=== PATIENT | male | born 1980 | race Caucasian/White ===

== ENCOUNTER 2023-06-08 08:00 | Emergency (ER) | payer OTHER ==
[~2023-06-08] VITALS: Ht 170.2 cm; Wt 81.2 kg
[2023-06-08 08:05] VITALS: BP 138/86; PULSE 82; RESP 16; TEMP 98.6; O2SAT 98
[2023-06-08] MEDS: LIDOcaine 1% W/epiNEPHrine 1:100,000 20ml vial IJ ONE (10:07)
[2023-06-08] MEDS: bacitracin 15gm ointment TP ONE (10:08)
[2023-06-08] MEDS: TETanus/Pertussis (Acell)/Diphther VAC/PF (Tdap-Adult) 0.5ml syringe IMVAC ONE (10:09)
[2023-06-08] MEDS ORDERED: SULF1TAB49 PO (10:22)
== END 2023-06-08 10:39 | disposition home or self-care (01) ==
LOC: ER 08:00
DX: L02.411 Cutaneous abscess of right axilla (principal); Z79.2 Long term (current) use of antibiotics
CPT/HCPCS: 10060; 90471; 90715; 99283